=== PATIENT | male | born 1960 | race Caucasian/White ===

== ENCOUNTER 2019-03-05 13:59 | Observation (INO) ==
[2019-03-05 14:54] LABS: Bilirubin,Urine Negative (Negative); Blood,Urine Negative (Negative); Clarity,Urine Clear (Clear); Color,Urine Yellow (Yellow); Glucose,Urine (UA) 500 mg/dL (Normal); Ketones,Urine Negative (Negative); Leukocyte Esterase,Urine Negative (Negative); Nitrite,Urine Negative (Negative); Protein,Urine Negative (Neg-Trace); Specific Gravity,Urine 1.014 (1.010-1.025); Urobilinogen,Urine Normal (Normal)
[2019-03-05 15:26] LABS: Basophils # 0.1 K/mcL (0.0-0.2); Basophils % 0.8 %; Eosinophils # 0.1 K/mcL (0.0-0.6); Eosinophils % 1.8 %; Immature Granulocytes % 0.3 % (0-4); Lymphocytes # 2.3 K/mcL (0.6-4.6); Lymphocytes % 29.4 %; Mean Corpuscular HGB Conc 36.1 g/dL (31.6-35.5); Mean Corpuscular Hemoglobin 31.9 pg (28.0-33.3); Mean Corpuscular Volume 88.5 fL (83.0-100.0); Mean Platelet Volume 10.6 fL (9.4-12.4); Monocytes # 0.6 K/mcL (0.0-1.3); Monocytes % 7.7 %; Neutrophils # 4.7 K/mcL (1.6-8.9); Platelet Count 158 K/mcL (140-400); Red Blood Count 4.07 M/mcL (4.19-5.50); White Blood Count 7.8 K/mcL (4.3-11.1)
[2019-03-05 16:18] LABS: Alanine Aminotransferase 15 Units/L (7-52); Albumin/Globulin Ratio 1.1 (1.1-2.2); Alkaline Phosphatase 102 Units/L (34-104); Amylase 205 Units/L (29-103); Aspartate Amino Transferase 16 Units/L (13-39); BUN/Creatinine Ratio 14 (6-26); Bilirubin,Direct 0.2 mg/dL (0.0-0.2); Bilirubin,Indirect 0.3 mg/dL (0.0-1.0); Bilirubin,Total 0.5 mg/dL (0.3-1.0); Blood Urea Nitrogen 18 mg/dL (6-20); Calcium 9.4 mg/dL (8.6-10.3); Carbon Dioxide 23 mEq/L (23-29); Chloride 105 mEq/L (98-107); Globulin 3.5 g/dL (2.4-3.5); Glucose 262 mg/dL (70-105); Lipase 843 Units/L (11-82); Osmolality,Calculated 299 (280-300); Potassium 3.8 mEq/L (3.5-5.1); Sodium 139 mEq/L (136-145); Total Protein 7.5 g/dL (6.4-8.9); eGFR For African Americans > 60 (> 60); eGFR For Non-African Americans 57 (> 60)
[2019-03-05] MEDS ORDERED: 0.9 % Sodium Chloride 1,000 ML IVC ONE (16:26)
[2019-03-05] MEDS ORDERED: *HR* HYDROmorphone (PF) 1 MG/ML SYRINGE IVP ONE (16:26)
[2019-03-05] MEDS ORDERED: Ondansetron 4 MG/2 ML VIAL IVP ONE (17:20)
[2019-03-05] MEDS ORDERED: Naloxone 0.4 MG/ML INJ IVP PRN (18:21)
[2019-03-05] MEDS ORDERED: Ondansetron ODT 4 MG TAB.RAPDIS SL PRN (18:37)
[2019-03-05] MEDS ORDERED: tiZANidine 4 MG TABLET PO PRN (18:37)
[2019-03-05] MEDS ORDERED: Nystatin SUSP 5 ML UD.LIQ PO SCH (21:00)
[2019-03-05] MEDS ORDERED: Gabapentin 400 MG CAPSULE PO SCH (21:00)
[2019-03-05] MEDS ORDERED: carBAMazepine 200 MG TABLET PO SCH (21:00)
[2019-03-05 22:40] VITALS: BP 111/62
[2019-03-05] MEDS ORDERED: Ketorolac 30 MG/ML VIAL IVP ONE (22:40)
[2019-03-06] MEDS ORDERED: Magic Mouthwash 10 ML UD Cup PO SCH (07:30)
[2019-03-06] MEDS ORDERED: Thiamine (B-1) 100 MG TABLET PO SCH (09:00)
[2019-03-06] MEDS ORDERED: Famotidine 20 MG TABLET PO SCH (09:00)
[2019-03-06] MEDS ORDERED: Spironolactone 25 MG TABLET PO SCH (09:00)
[2019-03-06] MEDS ORDERED: Aspirin Enteric Coated 81 MG Tablet PO SCH (09:00)
== END 2019-03-06 00:14 | disposition left against medical advice (07) ==
LOC: 3BNU 13:59 → EMEROOARM 13:59 → 3BNU 20:30
PROVIDERS: ADMIT Student in an Organized Health Care Education/Training Program; ATTEND Student in an Organized Health Care Education/Training Program

== ENCOUNTER 2019-03-12 07:42 | Observation (INO) ==
[2019-03-12] MEDS ORDERED: Naloxone 0.4 MG/ML INJ IVP PRN (09:40)
[2019-03-12] MEDS ORDERED: Ondansetron 4 MG/2 ML VIAL IVP PRN (09:40)
[2019-03-12] MEDS ORDERED: Dextrose Gel 15 GM/37.5 ML TUBE PO PRN ×2 (09:44)
[2019-03-12] MEDS ORDERED: D5% in Water 1,000 ML IVC PRN (09:44)
[2019-03-12] MEDS ORDERED: *HR* Dextrose 50 % in Water (Syg) 50 ML SYRINGE IVP PRN (09:44)
[2019-03-12 10:13] LABS: Basophils # 0.1 K/mcL (0.0-0.2); Basophils % 0.7 %; Eosinophils # 0.2 K/mcL (0.0-0.6); Eosinophils % 2.7 %; Hemoglobin 13.8 g/dL (12.9-16.9); Immature Granulocytes % 0.3 % (0-4); Lymphocytes # 2.2 K/mcL (0.6-4.6); Lymphocytes % 28.8 %; Mean Corpuscular HGB Conc 36.3 g/dL (31.6-35.5); Mean Corpuscular Hemoglobin 32.2 pg (28.0-33.3); Mean Corpuscular Volume 88.6 fL (83.0-100.0); Mean Platelet Volume 9.9 fL (9.4-12.4); Monocytes # 0.6 K/mcL (0.0-1.3); Monocytes % 7.7 %; Neutrophils # 4.5 K/mcL (1.6-8.9); Platelet Count 173 K/mcL (140-400); Red Blood Count 4.29 M/mcL (4.19-5.50); Red Cell Distribution Width 15.2 % (11.5-14.5); Segmented Neutrophils % 59.8 %; White Blood Count 7.5 K/mcL (4.3-11.1)
[2019-03-12] MEDS: Insulin LISPRO 300 UNITS/3 ML VIAL SQ SCH ×2 (10:18→16:56)
[2019-03-12] MEDS: Ringers Solution, Lactated 1,000 ML IVC SCH ×2 (10:19→17:54)
[2019-03-12 10:26] LABS: INR 1.2; Prothrombin Time 13.5 Seconds (9.4-12.1)
[2019-03-12 10:56] LABS: Albumin 3.7 g/dL (3.5-5.7); Bilirubin,Direct 0.1 mg/dL (0.0-0.2); Bilirubin,Indirect 0.5 mg/dL (0.0-1.0); Bilirubin,Total 0.6 mg/dL (0.3-1.0); Chol/HDL Ratio 5.4 (0-4.9); Globulin 3.8 g/dL (2.4-3.5); Total Protein 7.5 g/dL (6.4-8.9)
[2019-03-12 10:58] LABS: Alanine Aminotransferase 20 Units/L (7-52); Albumin 3.7 g/dL (3.5-5.7); Alkaline Phosphatase 106 Units/L (34-104); Aspartate Amino Transferase 20 Units/L (13-39); BUN/Creatinine Ratio 20 (6-26); Bilirubin,Total 0.6 mg/dL (0.3-1.0); Blood Urea Nitrogen 29 mg/dL (6-20); Calcium 8.6 mg/dL (8.6-10.3); Carbon Dioxide 25 mEq/L (23-29); Chloride 105 mEq/L (98-107); Globulin 3.8 g/dL (2.4-3.5); Glucose 260 mg/dL (70-105); Osmolality,Calculated 303 (280-300); Potassium 3.6 mEq/L (3.5-5.1); Sodium 139 mEq/L (136-145); Total Protein 7.5 g/dL (6.4-8.9); eGFR For African Americans > 60 (> 60); eGFR For Non-African Americans 50 (> 60)
[2019-03-12] MEDS ORDERED: hydrOXYzine pamoate 25 MG CAPSULE PO PRN (12:06)
[2019-03-12 17:05] LABS: Bilirubin,Urine Negative (Negative); Blood,Urine Negative (Negative); Clarity,Urine Clear (Clear); Color,Urine Yellow (Yellow); Glucose,Urine (UA) Normal (Normal); Ketones,Urine Negative (Negative); Leukocyte Esterase,Urine Negative (Negative); Nitrite,Urine Negative (Negative); Protein,Urine Negative (Neg-Trace); Specific Gravity,Urine > 1.030 (1.010-1.025); Urobilinogen,Urine Normal (Normal)
[2019-03-12 19:44] VITALS: BP 143/78
[2019-03-12] MEDS ORDERED: Morphine Sulfate 2 MG/ML SYRINGE IVP ONE (20:27)
[2019-03-12] MEDS ORDERED: carBAMazepine 200 MG TABLET PO SCH (21:00)
[2019-03-13] MEDS ORDERED: Aspirin Enteric Coated 81 MG Tablet PO SCH (09:00)
[2019-03-13] MEDS ORDERED: Famotidine 20 MG TABLET PO SCH (09:00)
[2019-03-13] MEDS ORDERED: Finasteride 5 MG TABLET PO SCH (09:00)
[2019-03-13] MEDS ORDERED: Thiamine (B-1) 100 MG TABLET PO SCH (09:00)
[2019-03-13] MEDS ORDERED: Vitamin B Complex/Vit C/Vit E 1 EACH TABLET PO SCH (09:00)
== END 2019-03-12 21:28 | disposition left against medical advice (07) ==
LOC: 3BNU → SUATTDRO 09:07
PROVIDERS: ADMIT Internal Medicine; ATTEND Internal Medicine